=== PATIENT | female | born 1975 ===

== ENCOUNTER 2018-05-27 23:41 | Emergency (ER) | payer SELFPAY ==
[2018-05-27 23:41] VITALS: BMI 28.8
[2018-05-28] MEDS ORDERED: Sodium Chloride 0.9% 1,000 ML IV ONE ×2 (00:12→01:38)
[2018-05-28] MEDS ORDERED: Sodium Chloride 0.9% 1,000 ML ONE ×2 (00:27→01:58)
[2018-05-28 00:29] LABS: BASO # 0.1 K/uL (0.0-0.2); BASO % 0.6 % (0.0-2.0); EOS % 0.1 % (0.0-4.0); HEMOGLOBIN 13.5 g/dL (11.0-16.0); LYMPH # 3.3 K/uL (1.0-4.3); LYMPH % 17.2 % (20.0-40.0); MEAN CELL VOLUME 87.9 fL (81.0-99.0); MEAN CORPUSCULAR HEMOGLOBIN 29.4 pg (27.0-31.0); MEAN CORPUSCULAR HGB CONC 33.4 g/dL (33.0-37.0); MEAN PLATELET VOLUME 8.8 fL (7.2-11.7); MONO # 0.8 K/uL (0.0-0.8); MONO % 4.2 % (0.0-10.0); NEUT # 14.8 K/uL (1.8-7.0); NEUT % 77.9 % (50.0-75.0); RBC 4.59 Mil/uL (3.80-5.20); RED CELL DISTRIBUTION WIDTH 13.8 % (11.5-14.5)
[2018-05-28 00:50] LABS: ALB/GLOB RATIO 1.5 (1.0-2.1); ALBUMIN 4.5 g/dL (3.5-5.0); BLOOD UREA NITROGEN 12 mg/dL (7-17); CALCIUM 8.6 mg/dl (8.6-10.4); GFR NON-AFRICAN AMERICAN > 60; LIPASE 11 U/L (23-300)
[2018-05-28 00:57] LABS: ALT/SGPT 13 U/L (9-52); AST/SGOT 42 U/L (14-36)
[2018-05-28 01:08] LABS: SQUAMOUS EPITHIAL 2 /hpf (0-5); URINE BILIRUBIN NEGATIVE (NEGATIVE); URINE BLOOD NEGATIVE (NEGATIVE); URINE CLARITY Hazy (Clear); URINE COLOR Yellow (YELLOW); URINE GLUCOSE (UA) 1+ mg/dL (Normal); URINE LEUKOCYTE ESTERASE NEG Leu/uL (Negative); URINE PROTEIN NEGATIVE (NEGATIVE); URINE UROBILINOGEN NORMAL mg/dL (0.2-1.0)
[2018-05-28 04:31] LABS: INR 1.2; PROTHROMBIN TIME 12.9 SECONDS (9.7-12.2)
[2018-05-28 06:05] VITALS: O2SAT 100
[2018-05-28 07:04] VITALS: BP 132/76; PULSE 94; RESP 21; TEMP 98.4
--- NOTE | 2018-05-28 07:04 | C.PDOC ---
History Of Present Illness 43-year-old female presents to the ED for evaluation of sudden onset headache which began around one hour [employer]. Patient also reports having two episodes of vomiting. Patient denies photophobia, phonophobia, neck stiffness, chest pain, shortness of breath. Patient has not taken anything for her symptoms. Chief Complaint (Nursing): GI Problem History Per: Patient History/Exam Limitations: no limitations Onset/Duration Of Symptoms: Hrs Current Symptoms Are (Timing): Still Present Quality: Aching Associated Symptoms: Nausea, Vomiting. denies: Photophobia Additional History Per: Patient Past Medical History Reviewed: Historical Data, Nursing Documentation, Vital Signs Vital Signs: Last Vital Signs Temp 98.3 F 05/28/18 06:03 Pulse 91 H 05/28/18 06:03 Resp 17 05/28/18 06:03 BP 116/69 05/28/18 06:03 Pulse Ox 100 05/28/18 06:03 - Medical History PMH: HTN Surgical History: No Surg Hx Family History: States: Unknown Family Hx - Social History Hx Alcohol Use: No Hx Substance Use: No - Immunization History Hx Tetanus Toxoid Vaccination: No Hx Influenza Vaccination: No Hx Pneumococcal Vaccination: No Review Of Systems Eyes: Negative for: Other (photophobia ) ENT: Negative for: Other (phonophobia ) Cardiovascular: Negative for: Chest Pain Respiratory: Negative for: Shortness of Breath Gastrointestinal: Positive for: Nausea, Vomiting Musculoskeletal: Negative for: Neck Pain Neurological: Positive for: Headache Physical Exam - Physical Exam Appears: Non-toxic, No Acute Distress Skin: Normal Color, Warm, Dry Head: Atraumatic, Normacephalic Eye(s): bilateral: Normal Inspection Oral Mucosa: Moist Neck: Normal ROM, Supple Chest: Symmetrical, No Deformity, No Tenderness Cardiovascular: Rhythm Regular, No Murmur Respiratory: Normal Breath Sounds, No Rales, No Rhonchi, No Wheezing Extremity: Normal ROM, Capillary Refill (less than 2 seconds ) Neurological/Psych: Oriented x3, Normal Speech, Normal Cognition, Normal Motor, Normal Sensation ED Course And Treatment - Laboratory Results Result Diagrams: 05/28/18 00:22 05/28/18 00:22 Lab Results: PT 12.9 SECONDS (9.7-12.2) H 05/28/18 04:19 INR 1.2 05/28/18 04:19 APTT 29 SECONDS (21-34) 05/28/18 04:19 Total Bilirubin 0.5 mg/dL (0.2-1.3) 05/28/18 00:22 AST 42 U/L (14-36) H D 05/28/18 00:22 ALT 13 U/L (9-52) 05/28/18 00:22 Alkaline Phosphatase 77 U/L (38-126) 05/28/18 00:22 Total Protein 7.5 g/dL (6.3-8.3) 05/28/18 00:22 Albumin 4.5 g/dL (3.5-5.0) 05/28/18 00:22 Globulin 3.0 gm/dL (2.2-3.9) 05/28/18 00:22 Albumin/Globulin Ratio 1.5 (1.0-2.1) 05/28/18 00:22 Lipase 11 U/L (23-300) L 05/28/18 00:22 Urine Color Yellow (YELLOW) 05/28/18 00:12 Urine Clarity Hazy (Clear) 05/28/18 00:12 Urine pH 8.0 (5.0-8.0) 05/28/18 00:12 Ur Specific [place] 1.010 (1.003-1.030) 05/28/18 00:12 Urine Protein Negative mg/dL (NEGATIVE) 05/28/18 00:12 Urine Glucose (UA) 1+ mg/dL (Normal) 05/28/18 00:12 Urine Ketones Trace mg/dL (NEGATIVE) 05/28/18 00:12 Urine Blood Negative (NEGATIVE) 05/28/18 00:12 Urine Nitrate Negative (NEGATIVE) 05/28/18 00:12 Urine Bilirubin Negative (NEGATIVE) 05/28/18 00:12 Urine Urobilinogen Normal mg/dL (0.2-1.0) 05/28/18 00:12 Ur Leukocyte Esterase Neg Paz/uL (Negative) 05/28/18 00:12 Urine WBC (Auto) 2 /hpf (0-5) 05/28/18 00:12 Urine RBC (Auto) 2 /hpf (0-3) 05/28/18 00:12 Ur Squamous Epith Cells 2 /hpf (0-5) 05/28/18 00:12 O2 Sat by Pulse Oximetry: 100 (on RA ) Pulse Ox Interpretation: Normal - CT Scan/US CT Head Other Rad Studies (CT/US): Read By Radiologist, Radiology Report Reviewed CT/US Interpretation: CT SCAN OF THE BRAIN WITHOUT IV CONTRAST. CLINICAL INDICATION: Rule out intracranial hemorrhage. TECHNIQUE: Axial and reformatted sagittal and coronal images of the brain obtained without IV contrast administration. FINDINGS: Moderate diffuse acute subarachnoid hemorrhage in the basilar cisterns. Associated moderate diffuse brain edema. Normal calvarium. There is no demonstrated fracture. Normal soft tissue structures. Normal visualized paranasal sinuses. IMPRESSION: Moderate diffuse acute subarachnoid hemorrhage in the basilar cisterns. Associated moderate diffuse brain edema. Critical Care Time - Critical Care Note Total Time (in mins): 120 Documented critical care: time excludes all time spent performing seperately billable procedures. Medical Decision Making Medical Decision Making: Bloodwork, urinalysis, EKG, CT Head ordered and reviewed. Pepcid IVP, Reglan IVP, Toradol IVP, Zofran IVP and IV Fluids given. Upon receiving a phone call from [employer] about the CT reading, I paged the neurosurgeon brick and block mason, Dr. Chery. 0345: Dr. Chery reviewed the case, recommended that the patient be admitted to the ICU for potential transfer in the morning. Attending team had some concerns. Multiple calls placed back to neurosurgeon brick and block mason. Dr. Chery did not answer repeat phone calls. 0600: Spoke with Dr. Chery again. He reiterated that patient can wait for transfer in the morning. 0615: Case discussed with Dr. Milan, neurointerventionalist, who recommended patient to be transferred immediately. 0620: [facility] transfer center called this ED for patient information. Donna rai initiated. Disposition - Disposition Disposition: Trans to Other Acute Care Hosp Disposition Time: 07:00 Condition: SERIOUS Forms: [facility] (Bulgarian) - Clinical Impression Clinical Impression: Subarachnoid bleed, Cerebral edema - Scribe Statement The provider has reviewed the documentation as recorded by the Scribe (Jennifer Silveira) Provider Attestation: All medical record entries made by the Scribe were at my direction and personally dictated by me. I have reviewed the chart and agree that the record accurately reflects my personal performance of the history, physical exam, medical decision making, and the department course for this patient. I have also personally directed, reviewed, and agree with the discharge instructions and disposition.
--- NOTE | 2018-05-28 11:24 | CT ---
Date of service: 05/28/2018 PROCEDURE: CT HEAD WITHOUT CONTRAST. HISTORY: r/o ICH COMPARISON: None available. TECHNIQUE: Axial computed tomography images were obtained through the head/brain without intravenous contrast. Radiation dose: Total exam DLP = 1060.15 mGy-cm. This CT exam was performed using one or more of the following dose reduction techniques: Automated exposure control, adjustment of the mA and/or kV according to patient size, and/or use of iterative reconstruction technique. FINDINGS: HEMORRHAGE: Mild subacute hemorrhage identified at right greater than left sylvian fissure poles interventricular hemorrhage identified at the region of the anterior 3rd ventricle approaching the foramen of Monro. No intraparenchymal hemorrhage is identified and there is no epidural or subdural hematoma appreciated. BRAIN: Normal weiner-white matter differentiation and density are appreciated throughout the cerebrum and cerebellum with the brainstem appearing unremarkable as well. There is no mass effect. The midline brain anatomy appears diffusely unremarkable. VENTRICLES: See hemorrhage discussion at 3rd ventricle as per above. No hydrocephalus. CALVARIUM: Unremarkable. PARANASAL SINUSES: Unremarkable as visualized. No significant inflammatory changes. MASTOID AIR CELLS: Unremarkable as visualized. No inflammatory changes. OTHER FINDINGS: None. IMPRESSION: Multifocal intracranial hemorrhage is identified at the right greater than left sylvian fissures with a small area of intraventricular hemorrhage at the anterior 3rd ventricle approaching the foramen of Monro. Follow-up CT arteriography of the brain is advised for added characterization or or noncontrast MRA. No parenchymal edema or mass significant mass effect. Intrinsic brain density is unremarkable above below the tentorium including throughout the brainstem. Preliminary report provided by [email or web address], by Dr. Blankenship who communicated the results by phone to Dr. Harper on 05/28/2018 3:41 a.m., electronically signed 3:37 a.m..
== END 2018-05-28 07:38 | disposition short-term general hospital (02) ==
LOC: C.ER 23:41
DX: I60.9 Nontraumatic subarachnoid hemorrhage, unspecified (principal); G93.6 Cerebral edema; I10 Essential (primary) hypertension
CPT/HCPCS: 70450; 80053; 81001; 81025; 83690; 85025; 85610; 85730; 87086; 93005; 96374; 96375; 96376; 99285; J1885; J2270; J2405; J2765; J7030

== ENCOUNTER 2018-07-18 11:08 | Outpatient (CLI) | payer SELFPAY | END 2018-07-18 11:09 | disposition home or self-care (01) | LOC: C.LAB 11:08 | DX: G70.00 Myasthenia gravis without (acute) exacerbation (principal) ==